=== PATIENT | female | born 1955 | race Caucasian/White ===

== ENCOUNTER → 2019-12-22 09:06 | Outpatient (CLI) | payer OTHER, MEDICAID, SELFPAY ==
--- NOTE | 2019-12-22 09:13 | DI.RAD.S_ITS ---
PROCEDURE: XR LUMBAR SPINE MIN 4V INDICATIONS: lumbar radiculopathy TECHNIQUE: 5 views of the lumbar spine were acquired. COMPARISON: [facility], MR, MR LUMBAR SPINE WITHOUT CONTRAST, 10/15/2019, 12:11. [facility], CR, SPINE LUMB 2 OR 3VW, 04/22/2012, 15:49. FINDINGS: Bones: 5 nonrib-bearing vertebrae are present. There is trace retrolisthesis of L2 on L3 and L5 on S1. Moderate to severe multilevel disc space narrowing is present most severe at L4-5 and L5-S1. Severe foraminal narrowing is present at L3-4, L4-5 and L5-S1. There is mild leftward curvature with apex at L4. No vertebral body compression fractures. No suspicious bony lesions. Soft tissues: Overlying bowel gas pattern is normal. No suspicious soft tissue calcifications. Oblique images: No pars defects. IMPRESSION: Multilevel degenerative changes most severe at L5-S1 as above. Dictated by: Eliza Kathleen M.D. on 12/22/2019 at 15:00 Approved by: Eliza Kathleen M.D. on 12/22/2019 at 15:03
== END ==
PROVIDERS: PCP Nurse Practitioner Family; Referring Provider Physical Medicine & Rehabilitation; Visit Provider Physical Medicine & Rehabilitation
DX: M47.27 Other spondylosis with radiculopathy, lumbosacral region (principal); M41.9 Scoliosis, unspecified; M06.9 Rheumatoid arthritis, unspecified; J44.9 Chronic obstructive pulmonary disease, unspecified
CPT/HCPCS: 72110; 99214

== ENCOUNTER → 2020-04-17 09:20 | Outpatient (CLI) | payer OTHER, MEDICAID, SELFPAY ==
--- NOTE | 2020-04-17 09:21 | DI.RAD.S_ITS ---
PROCEDURE: XR CERVICAL SPINE 4V OR 5V INDICATIONS: progressive neck pain TECHNIQUE: 5 views of the cervical spine acquired. COMPARISON: None. FINDINGS: Bones: AP, lateral, oblique, and odontoid views of the cervical spine show no fracture or subluxation. There are multilevel degenerative changes most prominently at C6-7. Foraminal stenosis is noted at C3-4, C4-5, and C5-6 on the left and right on oblique views. Disc space narrowing at C4-5, C5-6, and C6-7. Soft tissues: No prevertebral soft tissue swelling. IMPRESSION: 1. No acute abnormality. 2. Multilevel degenerative changes and disc disease as above.. Dictated by: Lázaro Fountain M.D. on 04/17/2020 at 10:06 Approved by: Lázaro Fountain M.D. on 04/17/2020 at 10:11
== END ==
PROVIDERS: PCP Nurse Practitioner Family; Referring Provider Physical Medicine & Rehabilitation; Visit Provider Physical Medicine & Rehabilitation
DX: M54.2 Cervicalgia (principal); M47.22 Other spondylosis with radiculopathy, cervical region; M48.02 Spinal stenosis, cervical region; M41.27 Other idiopathic scoliosis, lumbosacral region; M06.00 Rheumatoid arthritis without rheumatoid factor, unspecified site; Z96.651 Presence of right artificial knee joint
CPT/HCPCS: 72050; 99214